=== PATIENT | female | born 1950 | race Caucasian/White ===

== ENCOUNTER 2017-04-12 13:09 | Outpatient (CLI) | payer OTHER ==
--- NOTE | 2017-04-12 15:21 | RAD ---
3 VIEWS CERVICAL SPINE: Date: 04/12/17 HISTORY: Follow-up post surgery. Cervical radiculopathy. FINDINGS: C1-C7 seen on lateral view. Cervicothoracic junction obscured. There are postsurgical changes relate d to anterior cervical fusion of the C4 and C5 vertebral bodies with anterior plate and screws trans fixing this level. Intradiscal prosthesis is noted. No hardware complication is seen. There are mild degenerative changes in the cervical spine below the level of the postsurgical changes with narrowi ng of the intervertebral disc spaces at the C5-6 and C6-7 levels with osteophyte formation present. No fracture or subluxation seen. Prevertebral soft tissues are within normal limits. IMPRESSION: 1. Nonvisualization of the cervicothoracic junction. 2. Postsurgical changes related to anterior cervical fusion of the C4-5 level. POS: [facility]
== END 2017-04-12 13:10 | disposition home or self-care (01) ==
LOC: TBSIIMAG 13:09
PROVIDERS: ATTEND Neurological Surgery
DX: M54.12 Radiculopathy, cervical region (principal); M43.22 Fusion of spine, cervical region
CPT/HCPCS: 72040

== ENCOUNTER 2017-08-09 08:07 | Outpatient (CLI) | payer MEDICARE ==
--- NOTE | 2017-08-09 09:28 | CT ---
CT LUMBAR SPINE WITHOUT CONTRAST: HISTORY: Low back pain radiating down to the left leg. Surgery. COMPARISON: Lumbar spine radiograph from 2008. FINDINGS: The aortic contour is nonaneurysmal. Moderate atherosclerotic plaque. No retroperitoneal adenopathy . No renal calculus is visualized. Hypodensity interpolar left kidney. There is low-grade paraspinal muscular atrophy at the level of L4 and L5. Mild degenerative disease of the SI joints. Levels are as follows: T12-L1: Moderate degenerative disk space disease . Posterior disk-osteophyte complex. The spinal c anal measures 9 mm. No significant neural foraminal narrowing. L1-2: Moderate degenerative disk space height loss with disk desiccation. There is posterior disk-o steophyte complex narrowing the spinal canal to approximately 8 mm. Moderate facet arthropathy. Mil d bilateral neural foraminal narrowing. L2-3: Moderate degenerative disk space height loss. There is posterior disk-osteophyte complex. Mo derate facet arthropathy. The spinal canal is narrowed to approximately 7 mm. Moderate bilateral ne ural foraminal narrowing, worse on the left. L3-4: Moderate degenerative disk space height loss. Circumferential disk bulge. There is ligamentu m flavum hypertrophy. The spinal canal is narrowed to approximately 7 mm. Moderate to severe left a nd moderate right side neural foraminal narrowing. End plate sclerosis. L4-5: Disk desiccation. Circumferential disk bulge. The spinal canal is narrowed to approximately 9 mm. There is ligamentum flavum hypertrophy. Moderate to severe facet arthropathy. Moderate to sev ere bilateral neural foraminal narrowing. L5-S1: There is a posterior disk-osteophyte complex which is calcified. Moderate ligamentum flavum hypertrophy. Moderate bilateral neural foraminal narrowing. IMPRESSION: Multilevel mild to moderate spondylosis as described above. POS: [facility]
== END 2017-08-09 08:08 | disposition home or self-care (01) ==
LOC: TBSIIMAG 08:07
PROVIDERS: ATTEND Neurological Surgery
DX: M47.26 Other spondylosis with radiculopathy, lumbar region (principal)
CPT/HCPCS: 72131

== ENCOUNTER 2018-03-24 15:08 | Outpatient (CLI) | payer MEDICARE | END 2018-03-24 15:09 | disposition home or self-care (01) | LOC: BICMAMMO 15:08 | PROVIDERS: ATTEND Specialist | DX: Z12.31 Encounter for screening mammogram for malignant neoplasm of breast (principal); R92.1 Mammographic calcification found on diagnostic imaging of breast | CPT/HCPCS: 77063; 77067 ==

== ENCOUNTER 2018-03-27 10:09 | Outpatient (CLI) | payer MEDICARE ==
[~2018-03-27 10:09] MED LIST: ISOVUE-370 76%-LOCM 1 ML ONE
--- NOTE | 2018-03-27 12:32 | CT ---
CT OF THE ABDOMEN AND PELVIS WITH IV COTNRAST: INDICATION: History of diarrhea, constipation, rectal bleeding, and bloating for over 1 year. The patient has a history of prior hysterectomy and cholecystectomy. CONTRAST: 70 cc of Isovue 370. COMPARISON: Prior CT of the abdomen and pelvis dated 02/08/14. FINDINGS: The lung bases are clear. The gallbladder is surgically absent. No focal hepatic lesion is evident. The pancreas, spleen, and adrenal glands are within normal limits. No focal renal lesion is evident. There are moderate to severe calcifications involving the abdominopelvic vasculature. Small and large bowel re unremarkable-appearing. There is a normal appendix seen within the mid abdo men. No free fluid is evident. There is scattered degenerative and osteoarthritic change. No definite acute osseous abnormality is evident. There is moderate degenerative arthrosis of the right hip. There is degenerative levoscoli osis of the lumbar spine centered at L3-4. IMPRESSION: 1. No definite acute abnormality to explain the patient's diarrhea, constipation, rectal bleeding, a nd bloating. 2. Cholecystectomy and hysterectomy. 3. Normal appendix. 4. Chronic findings as above. POS: [facility]
== END 2018-03-27 10:10 | disposition home or self-care (01) ==
LOC: BICCT 10:09
PROVIDERS: ATTEND Internal Medicine Gastroenterology
DX: R14.0 Abdominal distension (gaseous) (principal); K62.5 Hemorrhage of anus and rectum; D50.0 Iron deficiency anemia secondary to blood loss (chronic); M16.11 Unilateral primary osteoarthritis, right hip; M41.9 Scoliosis, unspecified; Z90.49 Acquired absence of other specified parts of digestive tract; Z90.710 Acquired absence of both cervix and uterus
CPT/HCPCS: 74177

== ENCOUNTER 2018-05-22 07:03 | Day surgery (SDC) | payer MEDICARE ==
--- NOTE | 2018-05-16 07:42 | HP ---
HISTORY OF PRESENT ILLNESS: Cristin Murphy is a 67-year-old female, followed by Dr. Yoandy Lamb and Dr. Hipolito Kelly. The patient report painless rectal bleeding that she has to control in the pad. She is on iron and maintains a hemoglobin of 11. She is not sure when this was last checked. She is co ncerned about the continued bleeding. She does not have any significant pain with defecation. Somet imes, when she is constipated, she will have some discomfort. She complains of some incontinence of stool and flatus at times. She has had a past hysterectomy. Office exam reveals significant interna l hemorrhoids, although no stigmata of bleeding on this exam. She reports she got some bleeding this morning. Dr. Lamb performed a colonoscopy last year that was normal. She has had a CT scan of abdo men and pelvis that was normal. She is obese, 239 pounds, 5 feet 6 inches, 38 BMI. I have talked to her extensively regarding the surgical options and my belief is that this is from hemorrhoids. Anos copy reveals significant hemorrhoids. I have given her the option of open versus PPH stapled hemorrh oidectomy and she chooses the latter. She understands the risks and benefits and she understands thi s will not address her fecal and flatus incontinence. She understands that the norma are more or l ess permanent. Plan is to proceed with a bowel prep and plan PPH stapled hemorrhoidectomy as an outp atient. ALLERGIES: COUMADIN, hives. SOCIAL HISTORY: Tobacco, none. Alcohol, rarely. MEDICATIONS: Adderall, [place] Thyroid, Pristiq, tramadol, Zithromax, methylprednisolone tapering dos e. PAST SURGICAL HISTORY: Total knee replacement bilaterally, laparoscopic cholecystectomy, total abdom inal hysterectomy, bilateral salpingo-oophorectomy, cataract surgery, colonoscopy last year normal, r otator cuff left shoulder. PAST MEDICAL HISTORY: GERD, hypertension, ADHD, anemia, rectal bleeding. PHYSICAL EXAMINATION: VITAL SIGNS: Blood pressure 206/84, pulse 73, temperature 98.2 degrees, 239 pounds, 5 feet 6 inches. HEENT: Unremarkable. LUNGS: Clear to auscultation. CARDIAC: Regular rate and rhythm without murmur or gallop. ABDOMEN: Soft, nontender. No masses. EXTREMITIES: Unremarkable. RECTAL: Perianal area reveals mild external hemorrhoids, very minimal. Anoscopy reveals significant internal hemorrhoids without stigmata of recent bleeding. No discomfort or pain during the endoscop ic exam: No perianal tenderness. ASSESSMENT AND PLAN: Rectal bleeding, anemia, requiring chronic iron administration, suspect hemorrh oidal bleeding. I have discussed with patient the risks and benefits and issues as outlined above.
[2018-05-17 15:13] VITALS: BMI 37.9
[2018-05-22] MEDS ORDERED: Ketorolac Tromethamine 30 MG/ML VIAL ONE (08:02)
[2018-05-22] MEDS ORDERED: metroNIDAZOLE 500 MG/100 ML BAG ONE (08:03)
[2018-05-22 08:22] LABS: #Basophils 0.1 thou/uL (0.0-0.2); #Eosinphils 0.4 thou/uL (0.0-0.7); %Basophils 0.7 % (0.0-1.0); %Eosinophils 3.6 % (0.0-10.0); %Lymphocytes 17.4 % (21.0-51.0); %Monocytes 8.7 % (0.0-10.0); %Neutrophils 69.7 % (42.0-75.0); Hemoglobin 11.3 g/dL (12.0-16.0); Mean Corpuscular HGB CONC 31.7 g/dL (32.0-36.0); Mean Corpuscular Hemoglobin 26.2 pg (27.0-31.0); Mean Corpuscular Volume 82.5 fL (78.0-98.0); Mean Platelet Volume 6.5 fL (7.4-10.4); Platelet Count 437 thou/uL (130-400); RBC Distribution Width 14.6 % (11.5-14.5); Red Blood Cell (RBC) Count 4.33 mill/uL (4.20-5.40); White Blood Cell (WBC) Count 11.5 thou/uL (4.8-10.8)
[2018-05-22] MEDS ORDERED: cefOXitin 2 GM in Sodium Chloride 0.9% 100 ML IVPB SCH (08:30)
[2018-05-22 08:49] LABS: Anion Gap 13 mmol/L (10-20); BUN (Urea Nitrogen) 14 mg/dL (9.8-20.1); Calc. Creatinine Clearance 94 mL/min (70-130); Calcium 9.8 mg/dL (7.8-10.44); Carbon Dioxide 31 mmol/L (23-31); Chloride 100 mmol/L (98-107); Estimated GFR-MDRD 56; Glucose 106 mg/dL (80-115); Potassium 4.1 mmol/L (3.5-5.1); Sodium 140 mmol/L (136-145)
[2018-05-22] MEDS ORDERED: Lidocaine 2% PF 5 ML VIAL ONE (09:45)
[2018-05-22] MEDS ORDERED: Bupivacaine HCl 0.5%/Epinephrine 1:200,000/PF 30 ml Vial ONE (09:45)
[2018-05-22] MEDS ORDERED: Fentanyl 100 MCG/2 ML VIAL ONE ×2 (10:04→11:33)
[2018-05-22] MEDS ORDERED: Lidocaine 2% Jelly 5 ML TUBE ONE (10:09)
[2018-05-22] MEDS ORDERED: HYDROcodone/Acetaminophen 5/325 mg Tablet ONE (12:26)
--- NOTE | 2018-05-22 12:27 | OP ---
PREOPERATIVE DIAGNOSIS: Bleeding hemorrhoids, prolapsing. POSTOPERATIVE DIAGNOSIS: Bleeding hemorrhoids, prolapsing. PROCEDURE: PPH stapled hemorrhoidectomy. SURGEON: Owen Bustamante M.D. ANESTHESIA: General. ESTIMATED BLOOD LOSS: Less than 10 mL. PROCEDURE: The patient was taken to the operating room where under general anesthesia in the prone j ack-knife position, perianal area and buttocks prepared with Betadine, draped in routine fashion. An us dilated with a speculum and then a working port obturator for the staple device inserted perianall y and fit easily as her anal canal was patulous. Four quadrant sutures of 2-0 silk were placed holdi ng the working port in place. Suture placement device inserted and well above the dentate line, a pu rsestring suture of 2-0 Prolene was placed circumferentially and the stapling device inserted and wit h the staple line well above the dentate line, the pursestring suture was brought out the side holes of stapling device and the stapling device approximated with the torque fire range and after ad equate 45 seconds to 1 minute compression time, the stapling device was fired, loosened, and removed intact. Donuts removed. Hemostasis gained with cautery and interrupted sutures of 3-0 chromic x2. Good hemostasis noted. Gelfoam roll placed. The patient tolerated the procedure well. There were n o prolapsing external hemorrhoids to be removed. No local anesthetic was used.
[2018-05-22] MEDS ORDERED: Dexamethasone 20 MG/5 ML VIAL ONE (13:50)
[2018-05-22] MEDS ORDERED: Ondansetron PF 4 MG/2 ML Vial ONE (13:50)
[2018-05-22] MEDS ORDERED: PROPOFOL 200 MG/20 ML VIAL ONE (13:50)
[2018-05-22] MEDS ORDERED: Succinylcholine Chloride 20 MG/ML 10 ml SYRINGE FS ONE (13:50)
--- NOTE | 2018-05-22 19:22 | EKG ---
Test Reason : PREOP Blood Pressure : / mmHG Vent. Rate : 062 BPM Atrial Rate : 062 BPM P-R Int : 162 ms QRS Dur : 082 ms QT Int : 466 ms P-R-T Axes : 022 010 064 degrees QTc Int : 472 ms Normal sinus rhythm Minimal voltage criteria for LVH, may be normal variant Prolonged QT Abnormal ECG When compared with ECG of 24-FEB-2017 14:33, Criteria for Anterior infarct are no longer Present Confirmed by ROHAN MCCLELLAND, SMook ([id number]) on 05/22/2018 7:21:30 PM Referred By: HANNAH Confirmed By:DR. Deneen MADRIGAL MD
== END 2018-05-22 13:15 | disposition home or self-care (01) ==
LOC: SDC 07:03
PROVIDERS: ATTEND Specialist
PROC: 065Y0ZC Destruction of Hemorrhoidal Plexus, Open Approach (ICD-10-PCS; principal; 2018-05-22)
DX: K64.8 Other hemorrhoids (principal); Z88.8 Allergy status to other drugs, medicaments and biological substances; Z79.899 Other long term (current) drug therapy
CPT/HCPCS: 36415; 80048; 85025; 93005; 93010; 96374; J0131; J0670; J0694; J1100; J1885; J2001; J2405; J2704; J3010; J7050

== ENCOUNTER 2019-03-05 13:33 | Outpatient (CLI) | payer MEDICARE ==
--- NOTE | 2019-03-05 15:33 | MRI ---
MRI Cervical spine with and without contrast: HISTORY: Cervical radiculopathy. Neck pain. COMPARISON: MRI cervical spine on 12/16/2015. FINDINGS: The craniocervical junction is unremarkable. No significant cord signal abnormality. Paravertebral soft tissues have a normal appearance and normal signal intensity. There is straightening of the normal cervical lordotic curvature. There been interval postsurgical ch anges when compared to the prior exam with metallic susceptibility artifact at the C4-5 level related to anterior cervical fusion with anterior plate and screws. Intradiscal prosthesis is noted. These findings were seen on radiographs of the cervical spine on 04/12/2017. No abnormal areas of enhancement are seen after the administration of intravenous contrast. C1-2:Mild degenerative changes are seen at the articulation of the odontoid with the anterior arch of C1. Central spinal canal at this level is patent. C2-3: There is mild uncinate process hypertrophy greater on the left. The right neural foramen is pat ent with minimal left-sided neural foraminal narrowing. Central spinal canal is patent C3-4: There is mild loss of intervertebral disc height. Broad-based disc osteophyte complex is presen t with mild facet degenerative changes. There is narrowing of the ventral subarachnoid space without deformity of the spinal cord. Uncinate process hypertrophy is present at this level. Mild sisi ateral neural foraminal narrowing is present greater on the left. C4-5: As noted above, there has been interval postsurgical changes at this level. Central spinal jefferson l and left neural foramen are patent. There is mild right-sided neural foraminal narrowing due to mild facet degenerative changes. C5-6: There is loss of intervertebral disc height. A broad-based disc osteophyte complex is present. There is mild to moderate narrowing of the central spinal canal. There is mild flattening the anterior aspect of the spinal cord due to the disc osteophyte complex. Mild to moderate bilateral alma delia ral foraminal narrowing is present. C6-7: Again, there is loss of intervertebral disc height with mild endplate degenerative changes. A d isc osteophyte complex is again present. This narrows the ventral subarachnoid space with flattening the anterior aspect of the spinal cord similar to prior exam. Minimal right-sided neural f oraminal narrowing is again noted. The left neural foramen is patent C7-T1: There is loss of intervertebral disc height. Mild disc osteophyte complex is present. The left neural foramen is not well assessed due to plane of scanning, but there is suggestion of at least mild left-sided neural foraminal narrowing. The right neural foramen and central canal are patent. Th ere are endplate degenerative changes seen at this level. IMPRESSION: 1. Interval postsurgical changes related to anterior cervical fusion at the C4-5 level. 2. Multilevel degenerative changes with disc osteophyte complexes seen above and below levels of post surgical change
== END 2019-03-05 13:34 | disposition home or self-care (01) ==
LOC: TBSIIMAG 13:33
PROVIDERS: ATTEND Neurological Surgery
DX: M47.22 Other spondylosis with radiculopathy, cervical region (principal); M25.78 Osteophyte, vertebrae; Z98.1 Arthrodesis status
CPT/HCPCS: 72156

== ENCOUNTER 2022-02-01 11:42 | Outpatient (CLI) | payer MEDICARE | END 2022-02-01 11:43 | disposition home or self-care (01) | LOC: BICRAD 11:42 | PROVIDERS: ATTEND Nurse Practitioner Family | DX: R06.02 Shortness of breath (principal); R05.9 Cough, unspecified | CPT/HCPCS: 71046 ==

== ENCOUNTER 2025-03-12 15:47 | Inpatient (IN) | payer MEDICARE ==
[2025-03-12 17:33] LABS: #Basophils 0.04 10x3/uL (0.0-0.2); #Eosinophils 0.49 10x3/uL (0.0-0.7); #Monocytes 0.60 10x3/uL (0.11-0.59); #Neutrophils 6.76 10x3/uL (1.40-6.50); %Basophils 0.4 % (0.0-1.0); %Eosinophils 5.1 % (0.0-10.0); %Lymphocytes 17.2 % (21.0-51.0); %Monocytes 6.3 % (0.0-10.0); %Neutrophils 70.6 % (42.0-75.0); Hematocrit 25.8 % (36.0-47.0); Hemoglobin 8.0 g/dL (12.0-16.0); Mean Corpuscular Hemoglobin 25.7 pg (27.0-31.0); Mean Corpuscular Volume 83.0 fL (78.0-98.0); Platelet Count 365 10x3/uL (130-400); Red Blood Cell (RBC) Count 3.11 mill/uL (4.20-5.40); White Blood Cell (WBC) Count 9.58 10x3/uL (4.8-10.8)
[2025-03-12 18:00] LABS: ALT (SGPT) 14 U/L (Less than 34); AST (SGOT) 34 U/L (11-34); Albumin 3.7 g/dL (3.1-4.5); Alkaline Phosphatase 124 U/L (40-110); Anion Gap 14 mmol/L (10-20); BUN (Urea Nitrogen) 9 mg/dL (9.8-20.1); Bilirubin, Total 0.6 mg/dL (0.3-1.2); Calc. Creatinine Clearance 0 mL/min (70-130); Calcium 9.5 mg/dL (7.8-10.44); Carbon Dioxide 22 mmol/L (23-31); Chloride 104 mmol/L (98-107); Globulin 3.2 g/dL (2.4-3.5); Glucose 94 mg/dL (83-110); Potassium 3.7 mmol/L (3.5-5.1); Sodium 136 mmol/L (136-145)
[2025-03-12] MEDS ORDERED: hydrALAZINE 20 MG/ML VIAL ONE (20:40)
[2025-03-12] MEDS ORDERED: Furosemide 40 MG (4 mL) VIAL ONE (20:40)
[2025-03-12] MEDS ORDERED: Nitroglycerin 2% Ointment 1 INCH/1 GM Packet ONE (20:40)
[2025-03-12] MEDS ORDERED: Aspirin Chewable 81 MG TAB ONE ×2 (20:41→20:51)
[2025-03-12] MEDS ORDERED: Nitroglycerin 0.4 MG TAB 1 EACH ONE (20:41)
[2025-03-12] MEDS ORDERED: Aspirin 325 MG TAB ONE (20:50)
[2025-03-12] MEDS ORDERED: Senokot S 8.6-50 MG TAB PO PRN (21:53)
[2025-03-12] MEDS ORDERED: Calcium Carbonate 500 MG ChewTAB PO PRN (21:53)
[2025-03-12] MEDS ORDERED: Ondansetron PF 4 MG/2 ML Vial IVP PRN (21:53)
[2025-03-12] MEDS ORDERED: Acetaminophen 325 MG TAB PO PRN (21:53)
[2025-03-12] MEDS ORDERED: Melatonin 3 MG TAB PO PRN (21:53)
[2025-03-12] MEDS ORDERED: Electrolyte Replacement Protocol 1 EACH FS SCH (22:00)
[2025-03-13] MEDS ORDERED: Glucagon 1 MG/ML KIT IM PRN (01:06)
[2025-03-13] MEDS ORDERED: Dextrose 50% Abboject 50 ML SYRINGE SLOW IVP PRN (01:06)
[2025-03-13 04:32] LABS: #Basophils 0.04 10x3/uL (0.0-0.2); #Eosinophils 0.41 10x3/uL (0.0-0.7); #Monocytes 0.85 10x3/uL (0.11-0.59); #Neutrophils 5.92 10x3/uL (1.40-6.50); %Basophils 0.5 % (0.0-1.0); %Eosinophils 4.7 % (0.0-10.0); %Lymphocytes 16.9 % (21.0-51.0); %Monocytes 9.8 % (0.0-10.0); %Neutrophils 67.9 % (42.0-75.0); Hematocrit 22.3 % (36.0-47.0); Hemoglobin 7.2 g/dL (12.0-16.0); Mean Corpuscular Hemoglobin 26.0 pg (27.0-31.0); Mean Corpuscular Volume 80.5 fL (78.0-98.0); Platelet Count 311 10x3/uL (130-400); Red Blood Cell (RBC) Count 2.77 mill/uL (4.20-5.40); White Blood Cell (WBC) Count 8.71 10x3/uL (4.8-10.8)
[2025-03-13 04:47] LABS: ALT (SGPT) 12 U/L (Less than 34); AST (SGOT) 25 U/L (11-34); Albumin 3.2 g/dL (3.1-4.5); Alkaline Phosphatase 109 U/L (40-110); Anion Gap 16 mmol/L (10-20); BUN (Urea Nitrogen) 9 mg/dL (9.8-20.1); Bilirubin, Total 0.7 mg/dL (0.3-1.2); Calc. Creatinine Clearance 75 mL/min (70-130); Calcium 8.8 mg/dL (7.8-10.44); Carbon Dioxide 22 mmol/L (23-31); Chloride 103 mmol/L (98-107); Globulin 2.7 g/dL (2.4-3.5); Glucose 90 mg/dL (83-110); Potassium 3.6 mmol/L (3.5-5.1); Sodium 137 mmol/L (136-145)
[2025-03-13] MEDS ORDERED: Furosemide 40 MG (4 mL) VIAL ONE (05:31)
[2025-03-13] MEDS: Furosemide 40 MG (4 mL) VIAL SLOW IVP SCH (05:53)
[2025-03-13] MEDS ORDERED: Enoxaparin 40 MG (0.4 mL) SYRINGE ONE (08:37)
[2025-03-13] MEDS: Enoxaparin 40 MG (0.4 mL) SYRINGE SC SCH (08:41)
[2025-03-13 14:27] VITALS: BMI 27.3
[2025-03-13] MEDS ORDERED: hydrALAZINE 20 MG/ML VIAL SLOW IVP PRN (17:20)
[2025-03-13] MEDS: hydrALAZINE 20 MG/ML VIAL SLOW IVP SCH (18:03)
[2025-03-14 05:10] LABS: #Basophils 0.03 10x3/uL (0.0-0.2); #Eosinophils 0.36 10x3/uL (0.0-0.7); #Monocytes 0.97 10x3/uL (0.11-0.59); #Neutrophils 6.18 10x3/uL (1.40-6.50); %Basophils 0.3 % (0.0-1.0); %Eosinophils 4.2 % (0.0-10.0); %Lymphocytes 12.7 % (21.0-51.0); %Monocytes 11.2 % (0.0-10.0); %Neutrophils 71.3 % (42.0-75.0); Hematocrit 24.3 % (36.0-47.0); Hemoglobin 7.6 g/dL (12.0-16.0); Mean Corpuscular Hemoglobin 25.2 pg (27.0-31.0); Mean Corpuscular Volume 80.7 fL (78.0-98.0); Platelet Count 325 10x3/uL (130-400); Red Blood Cell (RBC) Count 3.01 mill/uL (4.20-5.40); White Blood Cell (WBC) Count 8.67 10x3/uL (4.8-10.8)
[2025-03-14 05:30] LABS: Anion Gap 14 mmol/L (10-20); BUN (Urea Nitrogen) 7 mg/dL (9.8-20.1); Calc. Creatinine Clearance 75 mL/min (70-130); Calcium 8.6 mg/dL (7.8-10.44); Carbon Dioxide 29 mmol/L (23-31); Chloride 100 mmol/L (98-107); Glucose 104 mg/dL (83-110); Potassium 3.1 mmol/L (3.5-5.1); Sodium 140 mmol/L (136-145)
[2025-03-14] MEDS ORDERED: Electrolyte Replacement Protocol 1 EACH FS SCH (08:03)
[2025-03-14] MEDS: Cholecalciferol 1,000 UNITS (25 MCG) TAB PO SCH (09:27)
[2025-03-14] MEDS: Furosemide 40 MG (4 mL) VIAL SLOW IVP SCH (14:20)
[2025-03-14 14:54] LABS: Potassium 3.7 mmol/L (3.5-5.1)
[2025-03-14] MEDS ORDERED: Communication Order-Pharmacy FS SCH (16:15)
[2025-03-14 16:57] LABS: #Basophils 0.03 10x3/uL (0.0-0.2); #Eosinophils 0.24 10x3/uL (0.0-0.7); #Monocytes 1.01 10x3/uL (0.11-0.59); #Neutrophils 6.68 10x3/uL (1.40-6.50); %Basophils 0.3 % (0.0-1.0); %Eosinophils 2.5 % (0.0-10.0); %Lymphocytes 16.4 % (21.0-51.0); %Monocytes 10.6 % (0.0-10.0); %Neutrophils 70.0 % (42.0-75.0); Hematocrit 32.5 % (36.0-47.0); Hemoglobin 10.6 g/dL (12.0-16.0); Mean Corpuscular Hemoglobin 26.9 pg (27.0-31.0); Mean Corpuscular Volume 82.5 fL (78.0-98.0); Platelet Count 344 10x3/uL (130-400); Red Blood Cell (RBC) Count 3.94 mill/uL (4.20-5.40); White Blood Cell (WBC) Count 9.55 10x3/uL (4.8-10.8)
[2025-03-15 05:31] LABS: #Basophils 0.03 10x3/uL (0.0-0.2); #Eosinophils 0.48 10x3/uL (0.0-0.7); #Monocytes 1.05 10x3/uL (0.11-0.59); #Neutrophils 5.60 10x3/uL (1.40-6.50); %Basophils 0.3 % (0.0-1.0); %Eosinophils 5.3 % (0.0-10.0); %Lymphocytes 20.6 % (21.0-51.0); %Monocytes 11.6 % (0.0-10.0); %Neutrophils 61.9 % (42.0-75.0); Hematocrit 30.8 % (36.0-47.0); Hemoglobin 10.2 g/dL (12.0-16.0); Mean Corpuscular Hemoglobin 26.8 pg (27.0-31.0); Mean Corpuscular Volume 80.8 fL (78.0-98.0); Platelet Count 336 10x3/uL (130-400); Red Blood Cell (RBC) Count 3.81 mill/uL (4.20-5.40); White Blood Cell (WBC) Count 9.05 10x3/uL (4.8-10.8)
[2025-03-15 05:45] LABS: Anion Gap 15 mmol/L (10-20); BUN (Urea Nitrogen) 8 mg/dL (9.8-20.1); Calc. Creatinine Clearance 70 mL/min (70-130); Calcium 8.7 mg/dL (7.8-10.44); Carbon Dioxide 28 mmol/L (23-31); Chloride 99 mmol/L (98-107); Glucose 88 mg/dL (83-110); Potassium 3.5 mmol/L (3.5-5.1); Sodium 138 mmol/L (136-145)
[2025-03-15] MEDS: Potassium Chloride 20 MEQ in Premix 1 BAG IVPB SCH (07:44)
[2025-03-15] MEDS: PNEUMOC 20-VAL CONJ-DIP CRM/PF 0.5 ML SYRINGE IM ONE (07:45)
[2025-03-15] MEDS ORDERED: Adenosine 6 mg (2 mL) VIAL ONE (09:57)
[2025-03-15] MEDS ORDERED: Lidocaine 1% (PF) 30 ML VIAL ONE (09:58)
[2025-03-15] MEDS ORDERED: Nitroglycerin 50 MG/250 ML BOT 0 ML ONE (09:58)
[2025-03-15] MEDS ORDERED: Heparin 10,000 UNITS/ 10 ML VIAL ONE (09:58)
[2025-03-15] MEDS ORDERED: PHENYLEPHRINE-NS 100 MCG/ML 10 ML SYRINGE ONE (09:58)
[2025-03-15] MEDS ORDERED: Iopamidol 370 76% 100 ML VIAL ONE (11:47)
[2025-03-15] MEDS ORDERED: hydrALAZINE 20 MG/ML VIAL ONE (12:18)
[2025-03-15] MEDS ORDERED: Nitroglycerin 4.9 GM Bottle ONE (12:23)
[2025-03-15] MEDS ORDERED: Acetaminophen/Codeine 30-300mg Tablet PO PRN (12:37)
[2025-03-15] MEDS ORDERED: Nitroglycerin 0.4 MG TAB (25 Tab Bottle) SL PRN (12:37)
[2025-03-15] MEDS: Desvenlafaxine Succinate [Pristiq] 50 MG Tab.Er.24h PO SCH (21:00)
[2025-03-16 05:50] LABS: #Basophils 0.04 10x3/uL (0.0-0.2); #Eosinophils 0.65 10x3/uL (0.0-0.7); #Monocytes 1.04 10x3/uL (0.11-0.59); #Neutrophils 5.24 10x3/uL (1.40-6.50); %Basophils 0.5 % (0.0-1.0); %Eosinophils 7.6 % (0.0-10.0); %Lymphocytes 18.6 % (21.0-51.0); %Monocytes 12.1 % (0.0-10.0); %Neutrophils 60.9 % (42.0-75.0); Hematocrit 34.9 % (36.0-47.0); Hemoglobin 10.9 g/dL (12.0-16.0); Mean Corpuscular Hemoglobin 26.3 pg (27.0-31.0); Mean Corpuscular Volume 84.1 fL (78.0-98.0); Platelet Count 378 10x3/uL (130-400); Red Blood Cell (RBC) Count 4.15 mill/uL (4.20-5.40); White Blood Cell (WBC) Count 8.60 10x3/uL (4.8-10.8)
[2025-03-16 06:24] LABS: Anion Gap 13 mmol/L (10-20); BUN (Urea Nitrogen) 8 mg/dL (9.8-20.1); Calc. Creatinine Clearance 72 mL/min (70-130); Calcium 9.0 mg/dL (7.8-10.44); Carbon Dioxide 29 mmol/L (23-31); Chloride 98 mmol/L (98-107); Glucose 89 mg/dL (83-110); Potassium 4.0 mmol/L (3.5-5.1); Sodium 136 mmol/L (136-145)
[2025-03-16] MEDS: hydrALAZINE 20 MG/ML VIAL SLOW IVP SCH (15:46)
[2025-03-16 15:48] VITALS: BP 181/67; TEMP 97.5
[2025-03-16 16:58] LABS: Iron 28 ug/dL (50-170); Iron Binding Capacity, Total 285 mcg/dL (265-497)
[2025-03-16 17:26] LABS: Ferritin 202.43 ng/mL (10-291); Vitamin B12 445.0 pg/mL (211-911)
[2025-03-16] MEDS ORDERED: hydrALAZINE 10 MG TAB PO SCH (21:00)
[2025-03-17] MEDS ORDERED: Isosorbide Mononitrate 30 MG ER.TAB.S PO SCH (09:00)
== END 2025-03-16 19:05 | disposition home or self-care (01) | DRG 286 ==
LOC: ERS 15:47 → ERHOLD 21:53 → OBS 03-13 14:00
PROVIDERS: ADMIT Internal Medicine; ATTEND Internal Medicine
PROC: 4A023N8 Measurement of Cardiac Sampling and Pressure, Bilateral, Percutaneous Approach (ICD-10-PCS; principal; 2025-03-15)
PROC: B2111ZZ Fluoroscopy of Multiple Coronary Arteries using Low Osmolar Contrast (ICD-10-PCS; 2025-03-15)
PROC: B2161ZZ Fluoroscopy of Right and Left Heart using Low Osmolar Contrast (ICD-10-PCS; 2025-03-15)
PROC: 02HP32Z Insertion of Monitoring Device into Pulmonary Trunk, Percutaneous Approach (ICD-10-PCS; 2025-03-15)
PROC: 4A133B3 Monitoring of Arterial Pressure, Pulmonary, Percutaneous Approach (ICD-10-PCS; 2025-03-15)
PROC: 4A1239Z Monitoring of Cardiac Output, Percutaneous Approach (ICD-10-PCS; 2025-03-15)
DX: I35.0 Nonrheumatic aortic (valve) stenosis (principal); I50.33 Acute on chronic diastolic (congestive) heart failure; I11.0 Hypertensive heart disease with heart failure; E11.9 Type 2 diabetes mellitus without complications; E03.9 Hypothyroidism, unspecified; F32.A Depression, unspecified; F90.9 Attention-deficit hyperactivity disorder, unspecified type; D64.9 Anemia, unspecified; E87.6 Hypokalemia; E78.5 Hyperlipidemia, unspecified; Z88.8 Allergy status to other drugs, medicaments and biological substances; Z79.899 Other long term (current) drug therapy; Z79.890 Hormone replacement therapy; Z90.49 Acquired absence of other specified parts of digestive tract; Z87.891 Personal history of nicotine dependence
CPT/HCPCS: 36415; 36416; 36430; 71045; 80048; 80053; 82306; 82607; 82728; 83540; 83550; 83880; 84484; 85025; 86850; 86900; 86901; 93005; 93460; 93798; 96374; 96375; 99152; 99153; C1769; C1887; J0153; J0360; J0461; J1644; J1650; J1940; J2250; J3480; P9016; Q9967